=== PATIENT | female | born 1980 | race Caucasian/White ===

== ENCOUNTER 2016-12-14 13:35 | Emergency (ER) | payer SELFPAY ==
[~2016-12-14 13:35] MED LIST: MACR100C PO
[2016-12-14 13:36] VITALS: BP 166/99; PULSE 90; RESP 15; TEMP 98.4; O2SAT 99
--- NOTE | 2016-12-14 14:51 | PD ---
HPI Chief Complaint: Oral / Dental Pain or Problem Time Seen by Provider: 14:49 Travel History International Travel<30 days: No Contact w/Intl Traveler<30days: No Traveled to known affect area: No History of Present Illness HPI This is a 36-year-old female who presents for evaluation of pain. The patient wears mandibular dentures. Over the past 4-5 days she has had soreness in her left lower gumline where the dentures are in place. The pain is a throbbing pain that is constant and worse when she is wearing her dentures. Denies fevers , chills, nausea, vomiting. No other complaints. History Social History Alcohol Use: No Tobacco Use: Yes (5 CIGARRETTES A DAY/QUIT 11/05/12) Allergies-Medications (Allergen,Severity, Reaction): Coded Allergies: No Known Allergies (Verified , 11/17/12) Reported Meds & Prescriptions Reported Meds & Active Scripts Active No Active Prescriptions or Reported Medications Review of Systems General / Constitutional: No: Fever, Chills HENT: Positive: Dental Difficulties Physical Exam Narrative GENERAL: Well-developed well-nourished female in no acute distress SKIN: Warm and dry. HEAD: Atraumatic. Normocephalic. EYES: Pupils equal and round. No scleral icterus. No injection or drainage. ENT: No nasal bleeding or discharge. Mucous membranes pink and moist. There is some localized irritation and redness to the left lower mucosa which is tender to palpation. There is no induration or fluctuance or drainage. NECK: Trachea midline. No JVD. No lymphadenopathy. CARDIOVASCULAR: Regular rate and rhythm. No murmur appreciated. RESPIRATORY: No accessory muscle use. Clear to auscultation. Breath sounds equal bilaterally. Data Data Last Documented VS Vital Signs Date Time Temp Pulse Resp B/P (MAP) Pulse Ox O2 Delivery O2 Flow Rate FiO2 12/14/16 13:36 98.4 90 15 166/99 (121) 99 MDM Medical Screen Exam Complete: Yes Emergency Medical Condition: No Narrative Course A medical screening exam was performed: At the time of evaluation the presenting medical condition was determined not to be of an emergent nature. The patient was given the option of receiving additional care, but declined. Patient was given options for additional community resources from which to obtain care. The Patient Has Been advised to seek medical attention for their presenting complaint. The patient has been advised to return to the ER at any time if an emergent condition develops. Primary Impression: Encounter for medical screening examination Scripts No Active Prescriptions or Reported Meds Everette Gerber Dec 14, 2016 14:51
== END 2016-12-14 14:37 | disposition left against medical advice (07) ==
LOC: NEPK 13:35
DX: K08.89 Other specified disorders of teeth and supporting structures (principal); F17.210 Nicotine dependence, cigarettes, uncomplicated
CPT/HCPCS: 99281

== ENCOUNTER 2017-08-02 09:59 | Emergency (ER) | payer SELFPAY ==
[~2017-08-02] VITALS: Ht 162.6 cm; Wt 75.0 kg
[2017-08-02 10:08] VITALS: BP 176/83; PULSE 57; RESP 14; TEMP 98.3; O2SAT 100
[2017-08-02] MEDS ORDERED: POLY10O EACH EYE (10:19)
--- NOTE | 2017-08-02 10:19 | PD ---
HPI Chief Complaint: Foreign Body Time Seen by Provider: 10:15 Travel History International Travel<30 days: No Contact w/Intl Traveler<30days: No Traveled to known affect area: No History of Present Illness HPI 37-year-old female with no significant medical history presents emergency department for evaluation of right eye irritation. Patient states it began to itch yesterday. She woke up this morning with a swollen eyelid and crusted shut. Patient reports no visual changes. No foreign body sensation. No fever chills. She has no other symptoms to report. PFSH Past Medical History Medical History: Denies Significant Hx Diminished Hearing: No ?: Not : 3 Para: 2 Miscarriage: 0 : 0 Tubal Ligation: Yes Past Surgical History Cholecystectomy: Yes Social History Alcohol Use: No Tobacco Use: Yes (5 CIGARRETTES A DAY/QUIT 11/05/12) Substance Use: No Allergies-Medications (Allergen,Severity, Reaction): Coded Allergies: No Known Allergies (Verified , 11/17/12) Reported Meds & Prescriptions Reported Meds & Active Scripts Active Polytrim Opth Drops (Polymyxin/Trimethoprim Sulfate) 10,000-0.1 Unit/Ml-% Soln 1 Drop EACH EYE Q6HR 10 Days Review of Systems Except as stated in HPI: all other systems reviewed are Neg Physical Exam Narrative GENERAL: Well-nourished, well-developed female patient in no acute distress SKIN: Focused skin assessment warm/dry. HEAD: Normocephalic. EYES: No scleral icterus. Slight injection of the right sclera. EOMI. PERRLA. Patient does have crusting along eyelash base. Superior eyelid is mildly edematous. No foreign body. No uptake of fluorescein examination. NECK: Supple, trachea midline. No JVD or lymphadenopathy. CARDIOVASCULAR: Regular rate and rhythm without murmurs, gallops, or rubs. RESPIRATORY: Breath sounds equal bilaterally. No accessory muscle use. Data Data Last Documented VS Vital Signs Date Time Temp Pulse Resp B/P (MAP) Pulse Ox O2 Delivery O2 Flow Rate FiO2 08/02/17 10:08 98.3 57 14 176/83 (114) 100 Orders Orders Ed Discharge Order (08/02/17 10:19) MDM Medical Decision Making Medical Screen Exam Complete: Yes Emergency Medical Condition: Yes Medical Record Reviewed: Yes Differential Diagnosis Conjunctivitis versus blepharitis versus keratitis versus iritis versus foreign body Narrative Course 37-year-old female presents emergency department for evaluation of right eye irritation. Physical exam is consistent with a conjunctivitis. Patient will be started on antibiotic drops. She is encouraged to follow-up with a primary care provider and return immediately with acute worsening symptoms. Diagnosis Primary Impression: Conjunctivitis Qualified Codes: H10.31 - Unspecified acute conjunctivitis, right eye Referrals: Primary Care Physician Patient Instructions: Conjunctivitis (ED), General Instructions Departure Forms: Tests/Procedures, Work Release Enter return to work date: Aug 04, 2017 Additional Instructions: Frequent handwashing Cool compresses to the affected eye to alleviate discomfort Warm compresses to remove crest Return immediately with any acute worsening symptoms Med/Other Pt SpecificInfo: Prescription(s) given Scripts Polymyxin B-Trimethoprim Opth Drops (Polytrim Opth Drops) 10,000-0.1 Unit/Ml-% Soln 1 DROP EACH EYE Q6HR for Mgmt Bacterial Infection for 10 Days, #1 BOTTLE 0 Refills Prov: Irene Hagan 08/02/17 Disposition: 01 DISCHARGE HOME Condition: Stable Irene Hagan Aug 02, 2017 10:19
== END 2017-08-02 10:31 | disposition home or self-care (01) ==
LOC: NEPK 09:59
DX: H10.31 Unspecified acute conjunctivitis, right eye (principal)
CPT/HCPCS: 99283